=== PATIENT | female | born 1985 | race American Indian/Alaskan Native ===

== ENCOUNTER 2022-01-25 01:13 | Inpatient (IN) | payer SELFPAY ==
[2022-01-25] MEDS ORDERED: SODIUM CHLORIDE 0.9% 1000 ML 1,000 ML IV ONE (01:43)
--- NOTE | 2022-01-25 01:48 | Emergency Department Report ---
ED General Adult HPI - General Chief complaint: Dizziness Stated complaint: DIZZY SPELL/ LOW IRON PUI?: No Time Seen by Provider: 01/25/22 01:42 Source: patient Mode of arrival: Ambulatory Limitations: No Limitations - History of Present Illness Initial comments: 36-year-old female with medical history of diabetes and also hypertension as well as anemic due to menorrhagia from fibroid uterus came in today state that she feel like she needs blood transfusion as patient's last posttransfusion was last seen in June at [place]. Patient currently only endorses feeling dizziness is also headache. Patient denies any other discomfort or. Patient, denies fever chills night sweats blurred vision tinnitus ear pain runny nose sore throat loss of taste loss of smell chest pain palpitation short breath cough abdominal pain nausea vomiting diarrhea constipation joint pain muscle pain new rash and heat or cold intolerance. - Related Data Allergies Allergy/AdvReac Type Severity Reaction Status Date / Time No Known Allergies Allergy Verified 01/25/22 02:15 ED Review of Systems ROS: Stated complaint: DIZZY SPELL/ LOW IRON Other details as noted in HPI Constitutional: see HPI Eyes: as per HPI ENT: as per HPI Respiratory: see HPI Cardiovascular: as per HPI Endocrine: see HPI Gastrointestinal: as per HPI Genitourinary: as per HPI Musculoskeletal: as per HPI Skin: as per HPI Neurological: as per HPI Psychiatric: as per HPI Hematological/Lymphatic: as per HPI ED Past Medical Hx - Past Medical History Previous Medical History?: Yes Hx Hypertension: Yes Hx Diabetes: Yes Additional medical history: anemia - Surgical History Past Surgical History?: Yes Additional Surgical History: gastic sleeve 2020 - lost 120# - Social History Smoking Status: Never Smoker Substance Use Type: None ED Physical Exam - General Limitations: No Limitations General appearance: alert, in no apparent distress - Head Head exam: Present: atraumatic, normocephalic, normal inspection - Eye Eye exam: Present: normal appearance, PERRL, EOMI Pupils: Present: normal accommodation - ENT ENT exam: Present: normal exam - Neck Neck exam: Present: normal inspection. Absent: tenderness, meningismus - Respiratory Respiratory exam: Present: normal lung sounds bilaterally - Cardiovascular Cardiovascular Exam: Present: regular rate, normal rhythm - GI/Abdominal GI/Abdominal exam: Present: soft. Absent: distended, tenderness, guarding, rebound - External exam: Present: normal external exam - Back Exam Back exam: Present: normal inspection, full ROM - Neurological Exam Neurological exam: Present: oriented X3, CN II-XII intact - Psychiatric Psychiatric exam: Present: normal affect, normal mood - Skin Skin exam: Present: normal color ED Course Vital Signs 01/25/22 01/25/22 01/25/22 01:22 01:44 02:33 Temperature 98.8 F 99.4 F Pulse Rate 90 103 H Respiratory 16 18 Rate Blood Pressure 146/63 Blood Pressure 187/65 [Left] O2 Sat by Pulse 99 100 98 Oximetry - Reevaluation(s) Reevaluation #1: 01/25/22 03:10 SPOKE TO HOSPITALIST WHO HAS KINDLY ACCEPTED THE PATIENT FOR INPATIENT TRANSFUSION FOR SYMPTOMATIC ANEMIA. ED Medical Decision Making - Lab Data Result diagrams: 01/25/22 01:48 01/25/22 01:48 Critical care attestation.: If time is entered above; I have spent that time in minutes in the direct care of this critically ill patient, excluding procedure time. ED Disposition Clinical Impression: Signs and symptoms of anemia Disposition: 02 [facility]ORT TERM [facility]OS[facility] Is pt being admited?: Yes Does the pt Need Aspirin: No Condition: Stable Time of Disposition: 02:30
[2022-01-25 02:03] LABS: Mean Corpuscular HGB Conc 25 % (30-34); Red Blood Count 3.26 M/mm3 (3.65-5.03)
[2022-01-25 02:21] LABS: Mean Corpuscular Volume 55 fl (79-97)
[2022-01-25 02:22] LABS: Red Cell Distribution Width 32.1 % (13.2-15.2)
[2022-01-25 02:24] LABS: Hematocrit 17.8 % (30.3-42.9); Hemoglobin 4.5 gm/dl (10.1-14.3); Platelet Count 1109 K/mm3 (140-440)
[2022-01-25 02:26] LABS: Alanine Aminotransferase 6 units/L (7-56); Albumin 4.2 g/dL (3.9-5); Blood Urea Nitrogen 9 mg/dL (7-17); Calcium 8.9 mg/dL (8.4-10.2); Hemolysis Index 1
[2022-01-25 02:27] LABS: Partial Thromboplastin Time 138.3 Sec. (24.2-36.6)
[2022-01-25 02:28] LABS: BUN/Creatinine Ratio 15
--- NOTE | 2022-01-25 02:41 | Cat Scan Report ---
CT HEAD WITHOUT CONTRAST INDICATION / CLINICAL INFORMATION: Pt complains of headache with dizziness. TECHNIQUE: CT head was performed without administration of intravenous contrast. All CT scans at this location are performed using CT dose reduction for ALARA by means of automated exposure control. COMPARISON: None available. FINDINGS: CEREBRAL HEMISPHERES: There is no evidence of large territorial infarction or significant abnormality of her-white matter differentiation. Ventricles within normal limits. No midline shift. Basal ciste rns patent. HEMORRHAGE: None. CEREBELLUM / BRAINSTEM: No significant abnormality. ORBITS: No significant abnormality. SOFT TISSUES: No significant abnormality. SKULL: No significant abnormality. PARANASAL SINUSES / MASTOID AIR CELLS: Normal as visualized. ADDITIONAL FINDINGS: None. IMPRESSION: 1. No acute intracranial abnormality. Signer Name: Jaime Marinelli II, MD Signed: 01/25/2022 2:37 AM Workstation Name: [id number]
[2022-01-25] MEDS ORDERED: SODIUM CHLORIDE 0.9% 500 ML 500 ML IV ONE (03:05)
[2022-01-25 03:57] LABS: Anisocytosis 3+; Hypochromasia 3+; Monocytes % (Manual) 0 % (0.0-7.3); Total Cells Counted 100
[2022-01-25 03:58] LABS: Ovalocytes Few; Tear Drop Cells 1+
[2022-01-25 03:59] LABS: Platelet Estimate Consistent w Auto
[2022-01-25] MEDS ORDERED: ONDANSETRON 4 MG/2 ML INJ IV PRN (05:06)
[2022-01-25] MEDS ORDERED: ACETAMINOPHEN 325 MG TAB PO PRN (05:06)
[2022-01-25] MEDS ORDERED: MORPHINE 2 MG/1 ML INJ IV PRN (05:06)
[2022-01-25] MEDS ORDERED: ALBUTEROL 2.5 MG/3 ML NEBU IH PRN (05:06)
[2022-01-25] MEDS ORDERED: HYDROmorphone 1 MG/1 ML INJ IV PRN (05:06)
[2022-01-25] MEDS ORDERED: SODIUM CHLORIDE 0.9% 500 ML 500 ML IV NR (05:08)
--- NOTE | 2022-01-25 05:15 | History and Physical Report ---
History of Present Illness Date of examination: 01/25/22 Date of admission: 01/25/22 Chief complaint: Dizzy spell Weakness History of present illness: 36-year-old female with medical history of diabetes , hypertension and anemic due to menorrhagia from fibroid uterus came in today state that she feel like she needs blood transfusion as patient's last posttransfusion was last seen in June at [place]. Patient currently only endorses feeling dizziness is also headache. Patient denies any other discomfort . In the emergency room patient was found to have hemoglobin of 4.5 and hematocrit of 17.8 and platelet count 1109, MCV 55. We are going to admit the patient we are giving 3 unit of packed red blood cell. We also sent iron study and consult INFORMATION COORDINATOR Past History Past Medical History: anemia, diabetes, hypertension, other (Menorrhagia) Past Surgical History: Other (gastic sleeve 2020 - lost 120#) Social history: no significant social history Family history: no significant family history Medications and Allergies Allergies Allergy/AdvReac Type Severity Reaction Status Date / Time No Known Allergies Allergy Verified 01/25/22 02:15 Active Meds: Active Medications Acetaminophen (Acetaminophen 325 Mg Tab) 650 mg PO Q4H PRN PRN Reason: Pain MILD(1-3)/Fever >100.5/DORADO Albuterol (Albuterol 2.5 Mg/3 Ml Nebu) 2.5 mg IH Q3HRT PRN PRN Reason: Shortness Of Breath Albuterol/Ipratropium (Ipratropium/Albuterol Sulfate 3 Ml Ampul.Neb) 1 ampul IH Q6HRT RACHELLE Famotidine (Famotidine 20 Mg/2 Ml Inj) 20 mg IV BID RACHELLE Hydromorphone HCl (Hydromorphone 1 Mg/1 Ml Inj) 0.5 mg IV Q3H PRN PRN Reason: Pain , Severe (7-10) Sodium Chloride (Nacl 0.9% 500 Ml) 500 mls @ 0 mls/hr IV ONCE ONE Stop: 01/25/22 05:09 Morphine Sulfate (Morphine 2 Mg/1 Ml Inj) 2 mg IV Q4H PRN PRN Reason: Pain, Moderate (4-6) Ondansetron HCl (Ondansetron 4 Mg/2 Ml Inj) 4 mg IV Q8H PRN PRN Reason: Nausea And Vomiting Sodium Chloride (Sodium Chloride 0.9% 10 Ml Flush Syringe) 10 ml IV BID RACHELLE Sodium Chloride (Sodium Chloride 0.9% 10 Ml Flush Syringe) 10 ml IV PRN PRN PRN Reason: LINE FLUSH Review of Systems All systems: negative Constitutional: weakness, malaise, other (Dizziness dizziness per) Exam - Constitutional Vitals: Temp Pulse Resp BP Pulse Ox 99.4 F 103 H 18 187/65 98 01/25/22 01:44 01/25/22 01:44 01/25/22 01:44 01/25/22 01:44 01/25/22 02:33 General appearance: Present: no acute distress, well-nourished - EENT Eyes: Present: PERRL ENT: hearing intact, clear oral mucosa - Neck Neck: Present: supple, normal ROM - Respiratory Respiratory effort: normal Respiratory: bilateral: diminished - Cardiovascular Heart Sounds: Present: S1 & S2. Absent: rub, click - Extremities Extremities: pulses symmetrical, No edema Peripheral Pulses: within normal limits - Abdominal General gastrointestinal: Present: soft, non-tender, non-distended, normal bowel sounds Female genitourinary: Present: normal - Integumentary Integumentary: Present: clear, warm, dry - Musculoskeletal Musculoskeletal: gait normal, strength equal bilaterally - Psychiatric Psychiatric: appropriate mood/affect, intact judgment & insight - Neurologic Neurologic: CNII-XII intact, moves all extremities Results - Labs CBC & Chem 7: 01/25/22 01:48 01/25/22 01:48 Labs: Laboratory Last Values WBC 3.8 K/mm3 (4.5-11.0) L 01/25/22 01:48 RBC 3.26 M/mm3 (3.65-5.03) L 01/25/22 01:48 Hgb 4.5 gm/dl (10.1-14.3) L* 01/25/22 01:48 Hct 17.8 % (30.3-42.9) L* 01/25/22 01:48 MCV 55 fl (79-97) L 01/25/22 01:48 MCH 14 pg (28-32) L 01/25/22 01:48 MCHC 25 % (30-34) L 01/25/22 01:48 RDW 32.1 % (13.2-15.2) H 01/25/22 01:48 Plt Count 1109 K/mm3 (140-440) H* 01/25/22 01:48 Add Manual Diff Complete 01/25/22 01:48 Total Counted 100 01/25/22 01:48 Seg Neuts % (Manual) 43.0 % (40.0-70.0) 01/25/22 01:48 Band Neutrophils % 0 % 01/25/22 01:48 Lymphocytes % (Manual) 53.0 % (13.4-35.0) H 01/25/22 01:48 Reactive Lymphs % (Man) 1.0 % 01/25/22 01:48 Monocytes % (Manual) 0 % (0.0-7.3) 01/25/22 01:48 Eosinophils % (Manual) 2.0 % (0.0-4.3) 01/25/22 01:48 Basophils % (Manual) 1.0 % (0.0-1.8) 01/25/22 01:48 Metamyelocytes % 0 % 01/25/22 01:48 Myelocytes % 0 % 01/25/22 01:48 Promyelocytes % 0 % 01/25/22 01:48 Blast Cells % 0 % 01/25/22 01:48 Nucleated RBC % Not Reportable 01/25/22 01:48 Seg Neutrophils # Man 1.6 K/mm3 (1.8-7.7) L 01/25/22 01:48 Band Neutrophils # 0.0 K/mm3 01/25/22 01:48 Lymphocytes # (Manual) 2.0 K/mm3 (1.2-5.4) 01/25/22 01:48 Abs React Lymphs (Man) 0.0 K/mm3 01/25/22 01:48 Monocytes # (Manual) 0.0 K/mm3 (0.0-0.8) 01/25/22 01:48 Eosinophils # (Manual) 0.1 K/mm3 (0.0-0.4) 01/25/22 01:48 Basophils # (Manual) 0.0 K/mm3 (0.0-0.1) 01/25/22 01:48 Metamyelocytes # 0.0 K/mm3 01/25/22 01:48 Myelocytes # 0.0 K/mm3 01/25/22 01:48 Promyelocytes # 0.0 K/mm3 01/25/22 01:48 Blast Cells # 0.0 K/mm3 01/25/22 01:48 WBC Morphology Not Reportable 01/25/22 01:48 Hypersegmented Neuts Not Reportable 01/25/22 01:48 Hyposegmented Neuts Not Reportable 01/25/22 01:48 Hypogranular Neuts Not Reportable 01/25/22 01:48 Smudge Cells Not Reportable 01/25/22 01:48 Toxic Granulation Not Reportable 01/25/22 01:48 Toxic Vacuolation Not Reportable 01/25/22 01:48 Dohle Bodies Not Reportable 01/25/22 01:48 Pelger-Huet Anomaly Not Reportable 01/25/22 01:48 Jose Rods Not Reportable 01/25/22 01:48 Platelet Estimate Consistent w auto 01/25/22 01:48 Clumped Platelets Not Reportable 01/25/22 01:48 Plt Clumps, EDTA Not Reportable 01/25/22 01:48 Large Platelets Not Reportable 01/25/22 01:48 Giant Platelets Not Reportable 01/25/22 01:48 Platelet Satelliting Not Reportable 01/25/22 01:48 Plt Morphology Comment Not Reportable 01/25/22 01:48 RBC Morphology Not Reportable 01/25/22 01:48 Dimorphic RBCs Not Reportable 01/25/22 01:48 Polychromasia Not Reportable 01/25/22 01:48 Hypochromasia 3+ 01/25/22 01:48 Poikilocytosis Not Reportable 01/25/22 01:48 Anisocytosis 3+ 01/25/22 01:48 Microcytosis 2+ 01/25/22 01:48 Macrocytosis Not Reportable 01/25/22 01:48 Spherocytes Not Reportable 01/25/22 01:48 Pappenheimer Bodies Not Reportable 01/25/22 01:48 Sickle Cells Not Reportable 01/25/22 01:48 Target Cells Not Reportable 01/25/22 01:48 Tear Drop Cells 1+ 01/25/22 01:48 Ovalocytes Few 01/25/22 01:48 Helmet Cells Not Reportable 01/25/22 01:48 Link-Drummond Bodies Not Reportable 01/25/22 01:48 [place] Rings Not Reportable 01/25/22 01:48 [place] Cells Not Reportable 01/25/22 01:48 Bite Cells Not Reportable 01/25/22 01:48 Crenated Cell Not Reportable 01/25/22 01:48 Elliptocytes Rare 01/25/22 01:48 Acanthocytes (Spur) Not Reportable 01/25/22 01:48 Rouleaux Not Reportable 01/25/22 01:48 Hemoglobin C Crystals Not Reportable 01/25/22 01:48 Schistocytes Not Reportable 01/25/22 01:48 Malaria parasites Not Reportable 01/25/22 01:48 Jeffrey Bodies Not Reportable 01/25/22 01:48 Hem Pathologist Commnt No 01/25/22 01:48 PT 14.3 Sec. (12.2-14.9) 01/25/22 01:48 INR 1.00 (0.87-1.13) 01/25/22 01:48 APTT 138.3 Sec. (24.2-36.6) H* 01/25/22 01:48 Sodium 142 mmol/L (137-145) 01/25/22 01:48 Potassium 3.4 mmol/L (3.6-5.0) L 01/25/22 01:48 Chloride 105.3 mmol/L (98-107) 01/25/22 01:48 Carbon Dioxide 24 mmol/L (22-30) 01/25/22 01:48 Anion Gap 16 mmol/L 01/25/22 01:48 BUN 9 mg/dL (7-17) 01/25/22 01:48 Creatinine 0.6 mg/dL (0.6-1.2) 01/25/22 01:48 Estimated GFR > 60 ml/min 01/25/22 01:48 BUN/Creatinine Ratio 15 % 01/25/22 01:48 Glucose 132 mg/dL (65-100) H 01/25/22 01:48 Calcium 8.9 mg/dL (8.4-10.2) 01/25/22 01:48 Total Bilirubin 0.50 mg/dL (0.1-1.2) 01/25/22 01:48 AST 9 units/L (5-40) 01/25/22 01:48 ALT 6 units/L (7-56) L 01/25/22 01:48 Alkaline Phosphatase 48 units/L (35-129) 01/25/22 01:48 Total Protein 6.7 g/dL (6.3-8.2) 01/25/22 01:48 Albumin 4.2 g/dL (3.9-5) 01/25/22 01:48 Albumin/Globulin Ratio 1.7 % 01/25/22 01:48 Blood Type B POSITIVE 01/25/22 01:48 Antibody Screen Negative 01/25/22 01:48 Assessment and Plan VTE prophylaxis?: Mechanical Plan of care discussed with patient/family: Yes - Patient Problems (1) Signs and symptoms of anemia Current Visit: Yes Status: Acute Plan to address problem: Admit the patient to the medical floor. Regular diet. We are giving 3 unit of packed red blood cell. We also sent for iron study. Will consult NETWORK OPERATIONS PROJECT MANAGER for evaluation. Recheck CBC in the morning (2) Hypertension Current Visit: Yes Status: Acute Plan to address problem: Hydralazine 10 mg IV every 6 hours as needed. We will monitor the blood pressure closely (3) Menorrhagia Current Visit: Yes Status: Acute Plan to address problem: Will consult INFORMATION COORDINATOR for evaluation. Continue the home medication (4) Diabetes Current Visit: Yes Status: Acute Plan to address problem: We will put the patient on insulin sliding scale Humalog coverage . Diabetic education (5) DVT prophylaxis Current Visit: Yes Status: Acute Plan to address problem: SCD for DVT prophylaxis. Pepcid 20 mg p.o. twice daily for GI prophylaxis. Patient is a full code
[2022-01-25] MEDS ORDERED: hydrALAZINE 20 MG/1 ML INJ IV PRN (05:16)
[2022-01-25 09:05] LABS: % Iron Saturation 1.75 %
[2022-01-25] MEDS: IPRATROPIUM/ALBUTEROL SULFATE 3 ML AMPUL.NEB IH SCH ×2 (09:18→14:00)
[2022-01-25] MEDS ORDERED: FAMOTIDINE 20 MG/2 ML INJ IV SCH (10:00)
[2022-01-25 13:50] VITALS: BP 129/71
--- NOTE | 2022-01-27 14:54 | Discharge Summary ---
Providers - Providers Date of Admission: 01/25/22 05:06 Date of discharge: 01/25/22 Attending physician: TRANG GUTIERREZ 01/25/22 05:10 Consult to Physician [CONS] Routine Comment: Consulting Provider: [place] Physician Instructions: Reason For Exam: menorrhagia Primary care physician: MARIA T ALEXANDER Hospitalization Condition: Undetermined Hospital course: Patient was admitted with severe anemia Patient was supposed to be transfused with 2 units of blood and work-up for menorrhagia In the meantime patient eloped without informing the nursing staff Code her was called but patient could not be performed. Patient was called at home Patient resume safely Discharge diagnosis Symptomatic anemia Menorrhagia Disposition: LEFT AGAINST MEDICAL ADVICE Final Discharge Diagnosis (Prints w/discharge instructions): Symptomatic anemia. Menorrhagia Time spent for discharge: 20 minutes Core Measure Documentation - Palliative Care Palliative Care/ Comfort Measures: Not Applicable - Core Measures Any of the following diagnoses?: none Exam - Constitutional Vitals: Temp Pulse Resp BP Pulse Ox 98.0 F 66 20 129/71 95 01/25/22 11:55 01/25/22 11:55 01/25/22 11:55 01/25/22 11:55 01/25/22 11:55 General appearance: Present: no acute distress, well-nourished - EENT Eyes: Present: PERRL ENT: hearing intact, clear oral mucosa - Neck Neck: Present: supple, normal ROM - Respiratory Respiratory effort: normal Respiratory: bilateral: CTA - Cardiovascular Heart rate: 78 Rhythm: regular Heart Sounds: Present: S1 & S2. Absent: rub, click - Extremities Extremities: pulses symmetrical, No edema Peripheral Pulses: within normal limits - Abdominal General gastrointestinal: Present: soft, non-tender, non-distended, normal bowel sounds Female genitourinary: Present: normal - Integumentary Integumentary: Present: clear, warm, dry - Musculoskeletal Musculoskeletal: gait normal, strength equal bilaterally - Psychiatric Psychiatric: appropriate mood/affect, intact judgment & insight - Neurologic Neurologic: CNII-XII intact, moves all extremities Plan Activity: no restrictions Diet: regular Follow up with: MARIA T ALEXANDER MD [Primary Care Provider] - 7 Days
== END 2022-01-25 15:30 | disposition left against medical advice (07) | DRG 761 ==
LOC: ED 01:13 → 3A 05:06
PROVIDERS: ADMIT Hospitalist; ATTEND Internal Medicine
DX: N92.0 Excessive and frequent menstruation with regular cycle (principal); D64.9 Anemia, unspecified; I10 Essential (primary) hypertension; E11.9 Type 2 diabetes mellitus without complications
CPT/HCPCS: 36415; 70450; 80053; 83550; 85007; 85025; 85610; 85730; 86850; 86900; 86901; 96360; 99285; G0378; J3490; J7030; J7040